=== PATIENT | female | born 1965 | race African-American/Black ===

== ENCOUNTER 2017-02-08 08:47 | Emergency (ER) | payer OTHER ==
[~2017-02-08] VITALS: Ht 170.2 cm; Wt 91.2 kg
[2017-02-08] MEDS ORDERED: CLONIDINE HCL0.3 M3 PO (08:55)
[2017-02-08] MEDS ORDERED: LISINOPRIL20 MG PO (08:55)
[2017-02-08] MEDS ORDERED: DILTIAZEM ER180 M1 PO (08:57)
[2017-02-08 09:05] LABS: URINE BILIRUBIN NEGATIVE (Negative); URINE BLOOD 1+ (Negative); URINE COLOR YELLOW; URINE GLUCOSE-RANDOM* TRACE (Negative); URINE KETONES NEGATIVE (Negative); URINE NITRITE POSITIVE (Negative); URINE PROTEIN (DIPSTICK) 1+ (Negative)
[2017-02-08 09:11] LABS: ICTOTEST (BILI CONFIRMATORY) Positive (Negative)
[2017-02-08 09:12] LABS: CASTS None Seen /LPF (None Seen); CRYSTALS None Seen /LPF (None Seen); SQUAMOUS None Seen /LPF (0-3); URINE RBC 3-10 Few /HPF (0-2); URINE WBC 0-5 Rare /HPF (0-5); YEAST Present (None Seen)
[2017-02-08] MEDS ORDERED: PHENAZOPYRIDIN200 M2 PO (09:12)
[2017-02-08] MEDS ORDERED: BACTRIM DS TAB1 EACH PO (09:12)
[2017-02-08] MEDS ORDERED: DIFLUCAN200 MG PO (09:26)
[2017-02-08 09:40] VITALS: BP 148/95
== END 2017-02-08 09:40 | disposition home or self-care (01) ==
LOC: ER 08:47
PROVIDERS: Physician Assistant
DX: N39.0 Urinary tract infection, site not specified (principal); I10 Essential (primary) hypertension; F17.210 Nicotine dependence, cigarettes, uncomplicated; Z90.710 Acquired absence of both cervix and uterus; Z88.0 Allergy status to penicillin

== ENCOUNTER 2017-04-07 08:00 | Emergency (ER) | payer OTHER ==
[~2017-04-07] VITALS: Ht 170.2 cm; Wt 93.4 kg
[~2017-04-07 08:00] MED LIST: BACTRIM DS TAB1 EACH PO; CLONIDINE HCL0.3 M3 PO; DIFLUCAN200 MG PO; DILTIAZEM ER180 M1 PO; LISINOPRIL20 MG PO; PHENAZOPYRIDIN200 M2 PO
[2017-04-07 08:24] LABS: URINE BILIRUBIN NEGATIVE (Negative); URINE BLOOD 1+ (Negative); URINE GLUCOSE-RANDOM* NEGATIVE (Negative); URINE KETONES NEGATIVE (Negative); URINE NITRITE POSITIVE (Negative); URINE PROTEIN (DIPSTICK) 1+ (Negative); URINE SPECIFIC GRAVITY 1.025 (1.003-1.035)
[2017-04-07 08:26] LABS: URINE COLOR ORANGE
[2017-04-07] MEDS ORDERED: BACTRIM DS TAB1 EACH PO (09:01)
[2017-04-07] MEDS ORDERED: PYRIDIUM200 M2 PO (09:01)
[2017-04-07 09:12] VITALS: BP 140/90
[2017-04-07 09:47] LABS: SQUAMOUS >10 Many /LPF (0-3)
[2017-04-07 09:49] LABS: CASTS None Seen /LPF (None Seen); CRYSTALS None Seen /LPF (None Seen); URINE RBC 3-10 Few /HPF (0-2); URINE WBC >25 Many /HPF (0-5)
== END 2017-04-07 09:14 | disposition home or self-care (01) ==
LOC: ER 08:00
PROVIDERS: Emergency Medicine
DX: N39.0 Urinary tract infection, site not specified (principal); I10 Essential (primary) hypertension; Z90.710 Acquired absence of both cervix and uterus; Z88.0 Allergy status to penicillin; F17.210 Nicotine dependence, cigarettes, uncomplicated